=== PATIENT | male | born 1995 | race American Indian/Alaskan Native ===

== ENCOUNTER 2020-06-09 23:12 | Emergency (ER) | payer SELFPAY ==
--- NOTE | 2020-06-10 00:27 | XRay Report ---
CHEST 2 VIEWS INDICATION / CLINICAL INFORMATION: chestpain and hayder. FINDINGS: SUPPORT DEVICES: None. HEART / MEDIASTINUM: No significant abnormality. LUNGS / PLEURA: No significant pulmonary or pleural abnormality. No pneumothorax. ADDITIONAL FINDINGS: No significant additional findings. IMPRESSION: 1. No acute findings. Signer Name: Tony Bliss MD Signed: 06/10/2020 12:22 AM Workstation Name: [id number]
--- NOTE | 2020-06-10 01:44 | Emergency Department Report ---
- General Chief Complaint: Chest Pain Stated Complaint: CHEST PAIN/CHERRY Source: patient Mode of arrival: Ambulatory Limitations: No Limitations - History of Present Illness Initial Comments: Patient is a 25-year-old -U[place]and[place] male with no past medical history except chronic heavy tobacco abuse who presents to the ED with complaint of acute onset persistent nasal and sinus congestion, frontal sinus pressure, persistent dry cough with pleuritic chest pain for the last 3 days. Patient states that he has been taking dokv-mfx-[id number] medications with no relief. Patient denies fever, chills, nausea, vomiting, dizziness, syncope, shortness of breath, abdominal pain, sore throat or change in vision or syncope and neck pain. MD Complaint: cough, rhinorrhea, nasal congestion, other (pleuritic chest pain) -: Sudden, days(s) (3) Severity: moderate Severity scale (0 -10): 5 Quality: dull Consistency: constant Improves With: nothing Worsens With: nothing Associated Symptoms: denies other symptoms, headache, rhinorrhea, nasal congestion, cough, shortness of breath. denies: fever, chills, myalgias, diaphoresis, sore throat, stiff neck, chest pain, abdominal pain, nausea, vomiting, diarrhea, dysuria, rash, confusion, weight loss, epistaxis, hoarseness, other Treatments Prior to Arrival: none - Related Data Previous Rx's Medication Instructions Recorded Last Taken Type Azithromycin [Zithromax Z-REESE] 250 mg PO DAILY #6 tablet 06/10/20 Unknown Rx Benzonatate [Tessalon Perles] 100 mg PO Q8HR #30 capsule 06/10/20 Unknown Rx Cetirizine HCl [Zyrtec 10mg tab] 10 mg PO DAILY #30 tablet 06/10/20 Unknown Rx Ibuprofen [Motrin] 800 mg PO Q8HR PRN #24 tablet 06/10/20 Unknown Rx predniSONE [Deltasone] 40 mg PO QDAY #10 tab 06/10/20 Unknown Rx Allergies Allergy/AdvReac Type Severity Reaction Status Date / Time No Known Allergies Allergy Unverified 06/09/20 23:42 ED Review of Systems ROS: Stated complaint: CHEST PAIN/CHERRY Other details as noted in HPI Constitutional: denies: chills, fever Eyes: denies: eye pain, eye discharge, vision change ENT: congestion, other (frontal sinus pressure). denies: ear pain, throat pain Respiratory: cough. denies: shortness of breath, wheezing Cardiovascular: chest pain (Pleuritic chest wall pain). denies: palpitations Endocrine: no symptoms reported Gastrointestinal: denies: abdominal pain, nausea, vomiting, diarrhea Genitourinary: denies: urgency, dysuria Musculoskeletal: denies: back pain, joint swelling, arthralgia Skin: denies: rash, lesions Neurological: denies: headache, weakness, paresthesias Psychiatric: denies: anxiety, depression Hematological/Lymphatic: denies: easy bleeding, easy bruising ED Past Medical Hx - Past Medical History Previous Medical History?: No - Surgical History Past Surgical History?: No - Social History Smoking Status: Current Every Day Smoker Substance Use Type: Marijuana - Medications Home Medications: Home Medications Medication Instructions Recorded Confirmed Last Taken Type Azithromycin [Zithromax Z-REESE] 250 mg PO DAILY #6 tablet 06/10/20 Unknown Rx Benzonatate [Tessalon Perles] 100 mg PO Q8HR #30 capsule 06/10/20 Unknown Rx Cetirizine HCl [Zyrtec 10mg tab] 10 mg PO DAILY #30 tablet 06/10/20 Unknown Rx Ibuprofen [Motrin] 800 mg PO Q8HR PRN #24 tablet 06/10/20 Unknown Rx predniSONE [Deltasone] 40 mg PO QDAY #10 tab 06/10/20 Unknown Rx ED Physical Exam - General Limitations: No Limitations General appearance: alert, in no apparent distress - Head Head exam: Present: atraumatic, normocephalic, normal inspection - Eye Eye exam: Present: normal appearance, PERRL, EOMI Pupils: Present: normal accommodation - ENT ENT exam: Present: normal orophraynx, mucous membranes moist, TM's normal bilaterally, normal external ear exam, other (Grossly congested nasal passages; palpable frontal sinus tenderness) - Neck Neck exam: Present: normal inspection, full ROM - Respiratory Respiratory exam: Present: normal lung sounds bilaterally. Absent: respiratory distress, wheezes, rales, rhonchi, chest wall tenderness, accessory muscle use, decreased breath sounds - Cardiovascular Cardiovascular Exam: Present: regular rate, normal rhythm, normal heart sounds. Absent: systolic murmur, diastolic murmur, rubs, gallop - GI/Abdominal GI/Abdominal exam: Present: soft, normal bowel sounds. Absent: tenderness, rebound, hyperactive bowel sounds, hypoactive bowel sounds - Extremities Exam Extremities exam: Present: normal inspection, full ROM, normal capillary refill - Back Exam Back exam: Present: normal inspection, full ROM. Absent: tenderness, CVA tenderness (R), CVA tenderness (L), muscle spasm, paraspinal tenderness - Neurological Exam Neurological exam: Present: alert, oriented X3, CN II-XII intact, normal gait, reflexes normal - Psychiatric Psychiatric exam: Present: normal affect, normal mood - Skin Skin exam: Present: warm, dry, intact, normal color. Absent: rash ED Course Vital Signs 06/09/20 23:38 Temperature 97.9 F Pulse Rate 72 Respiratory 16 Rate Blood Pressure 129/64 O2 Sat by Pulse 99 Oximetry ED Medical Decision Making - Radiology Data Radiology results: report reviewed, image reviewed Findings [address] [address] XRay Report Signed Patient: FRAN PAREDES MR#: [id number] : 1995 Acct:[id number] Age/Sex: 25 / M ADM Date: 06/09/20 Loc: ED Attending Dr: Ordering Physician: ED MD CANDIDA Date of Service: 06/09/20 Procedure(s): XR chest routine 2V Accession Number(s): [id number] cc: ED MD CANDIDA Fluoro Time In Minutes: CHEST 2 VIEWS INDICATION / CLINICAL INFORMATION: chestpain and cherry. FINDINGS: SUPPORT DEVICES: None. HEART / MEDIASTINUM: No significant abnormality. LUNGS / PLEURA: No significant pulmonary or pleural abnormality. No pneumothorax. ADDITIONAL FINDINGS: No significant additional findings. IMPRESSION: 1. No acute findings. Signer Name: Tony Bliss MD Signed: 06/10/2020 12:22 AM Workstation Name: [id number] Transcribed By: BC Dictated By: Tony Bliss MD Electronically Authenticated By: Tony Bliss MD Signed Date/Time: 06/10/2021 DD/ TD/TT: - Medical Decision Making This is a 25-year-old -U[place] male with no past medical history except chronic heavy tobacco abuse who presents to the ED with complaint of acute onset persistent nasal and sinus congestion, frontal sinus pressure, persistent dry cough with pleuritic chest pain for the last 3 days. Patient states that he has been taking pxeg-wkn-ldbiolz medications with no relief. In the ED, patient is alert and oriented x3 and is not in distress. Chest x-ray shows no acute cardiopulmonary abnormalities or pneumonitis. Patient was discharged home on medications and advised to follow-up with his primary care physician in 5 to 7 days for reevaluation or return to the ED immediately if symptoms get worse. - Differential Diagnosis Sinusitis; URI; bronchitis; pneumonia; COVID-19 Critical care attestation.: If time is entered above; I have spent that time in minutes in the direct care of this critically ill patient, excluding procedure time. ED Disposition Clinical Impression: Acute upper respiratory infection, Acute non-recurrent frontal sinusitis Acute bronchitis Qualifiers: Bronchitis organism: unspecified organism Qualified Code(s): J20.9 - Acute bronchitis, unspecified Disposition: DC-01 TO HOME OR SELFCARE Is pt being admited?: No Does the pt Need Aspirin: No Condition: Stable Instructions: Acute Bronchitis (ED), Upper Respiratory Infection (ED), Acute Bacterial Rhinosinusitis (ED) Additional Instructions: The chest x-ray shows no acute cardiopulmonary abnormalities or pneumonitis. Take medication with food, drink plenty of fluids and follow-up with your primary care physician in 7 to 10 days for reevaluation. Return to the ED immediately if symptoms get worse. Prescriptions: predniSONE [Deltasone] 40 mg PO QDAY #10 tab Ibuprofen [Motrin] 800 mg PO Q8HR PRN #24 tablet PRN Reason: Pain , Severe (7-10) Benzonatate [Tessalon Perles] 100 mg PO Q8HR #30 capsule Azithromycin [Zithromax Z-REESE] 250 mg PO DAILY #6 tablet Cetirizine HCl [Zyrtec 10mg tab] 10 mg PO DAILY #30 tablet Referrals: [facility] [Provider Group] - 3-5 Days Forms: Work/School Release Form(ED) Time of Disposition: 01:46 Print Language: K[place]ILI
[2020-06-10 02:59] VITALS: BP 124/83
== END 2020-06-10 02:26 | disposition home or self-care (01) ==
LOC: ED 23:12
DX: J01.10 Acute frontal sinusitis, unspecified (principal); J06.9 Acute upper respiratory infection, unspecified; J20.9 Acute bronchitis, unspecified
CPT/HCPCS: 71046; 93005

== ENCOUNTER 2020-11-27 20:06 | Emergency (ER) | payer SELFPAY ==
[2020-11-27] MEDS ORDERED: LIDOCAINE (1%) 10 MG/1 ML VIAL 20 ML MDV INFILTRATI ONE (20:11)
[2020-11-27] MEDS ORDERED: NEOMY 3.5 MG/BACIT 400 UNITS/POLY B 5000 UNITS/GM OINT PACKET TP STA (20:12)
[2020-11-27] MEDS ORDERED: oxyCODONE /ACETAMINOPHEN 5-325MG TAB PO ONE (20:14)
--- NOTE | 2020-11-27 20:14 | Emergency Department Report ---
ED Animal Bite HPI - General Stated Complaint: BITE/LEFT HAND Time Seen by Provider: 11/27/20 20:08 - History of Present Illness Complaint: animal bite -: Sudden Left: Hand Animal: dog Animal Control Notified: No Description: unknown animal Mechanism: bite Pain Description: dull, constant Severity scale (0 -10): 10 Context: unprovoked Associated Symptoms: none - Related Data Patient Tetanus UTD: Yes Previous Rx's Medication Instructions Recorded Last Taken Type Azithromycin [Zithromax Z-REESE] 250 mg PO DAILY #6 tablet 06/10/20 Unknown Rx Benzonatate [Tessalon Perles] 100 mg PO Q8HR #30 capsule 06/10/20 Unknown Rx Cetirizine HCl [Zyrtec 10mg tab] 10 mg PO DAILY #30 tablet 06/10/20 Unknown Rx Ibuprofen [Motrin] 800 mg PO Q8HR PRN #24 tablet 06/10/20 Unknown Rx predniSONE [Deltasone] 40 mg PO QDAY #10 tab 06/10/20 Unknown Rx Amoxicillin/Potassium Clav 1 each PO BID #20 tablet 11/27/20 Unknown Rx [Augmentin 875-125 Tablet] Chlorhexidine Gluconate [Hibiclens] 10 ml TP BID #240 liquid 11/27/20 Unknown Rx Ketorolac [Toradol] 10 mg PO Q6H PRN #15 tablet 11/27/20 Unknown Rx traMADoL [Ultram] 50 mg PO Q6HR PRN #20 tablet 11/27/20 Unknown Rx Allergies Allergy/AdvReac Type Severity Reaction Status Date / Time No Known Allergies Allergy Unverified 06/09/20 23:42 ED Review of Systems ROS: Stated complaint: BITE/LEFT HAND Other details as noted in HPI Comment: All other systems reviewed and negative ED Past Medical Hx - Social History Smoking Status: Current Every Day Smoker Substance Use Type: Marijuana - Medications Home Medications: Home Medications Medication Instructions Recorded Confirmed Last Taken Type Azithromycin [Zithromax Z-REESE] 250 mg PO DAILY #6 tablet 06/10/20 Unknown Rx Benzonatate [Tessalon Perles] 100 mg PO Q8HR #30 capsule 06/10/20 Unknown Rx Cetirizine HCl [Zyrtec 10mg tab] 10 mg PO DAILY #30 tablet 06/10/20 Unknown Rx Ibuprofen [Motrin] 800 mg PO Q8HR PRN #24 tablet 06/10/20 Unknown Rx predniSONE [Deltasone] 40 mg PO QDAY #10 tab 06/10/20 Unknown Rx Amoxicillin/Potassium Clav 1 each PO BID #20 tablet 11/27/20 Unknown Rx [Augmentin 875-125 Tablet] Chlorhexidine Gluconate [Hibiclens] 10 ml TP BID #240 liquid 11/27/20 Unknown Rx Ketorolac [Toradol] 10 mg PO Q6H PRN #15 tablet 11/27/20 Unknown Rx traMADoL [Ultram] 50 mg PO Q6HR PRN #20 tablet 11/27/20 Unknown Rx ED Physical Exam - General General appearance: alert, in no apparent distress - Head Head exam: Present: atraumatic, normocephalic - Eye Eye exam: Present: normal appearance, PERRL Pupils: Present: normal accommodation - ENT ENT exam: Present: normal exam, normal orophraynx, mucous membranes moist, TM's normal bilaterally - Neck Neck exam: Present: normal inspection, full ROM - Respiratory Respiratory exam: Present: normal lung sounds bilaterally. Absent: respiratory distress, wheezes - Cardiovascular Cardiovascular Exam: Present: regular rate, normal rhythm. Absent: systolic murmur, diastolic murmur, rubs, gallop - GI/Abdominal GI/Abdominal exam: Present: soft, normal bowel sounds. Absent: tenderness, guarding, hyperactive bowel sounds, hypoactive bowel sounds, organomegaly - Rectal Rectal exam: Present: deferred - Extremities Exam Extremities exam: Present: normal inspection, tenderness - Expanded Upper Extremity Exam Left Hand Wrist exam: Present: tenderness, laceration Hand L/R Back: 1 - laceration to this region 4 cm - Back Exam Back exam: Present: normal inspection - Neurological Exam Neurological exam: Present: alert, oriented X3 - Psychiatric Psychiatric exam: Present: normal affect, normal mood - Skin Skin exam: Present: warm, dry, intact, normal color. Absent: rash ED Course Vital Signs 11/27/20 20:12 Temperature 98.3 F Pulse Rate 98 H Respiratory 18 Rate Blood Pressure 158/97 O2 Sat by Pulse 99 Oximetry - Procedure Description Procedures done: Left hand laceration. Wound size 4.5 cm. Wound was was irrigated with copious saline's and prepped and sterile fashion. Lidocaine 2% x 6 cc was placed in wound for anesthesia. 4-0 Prolene was placed x2 for loose wound closure Critical care attestation.: If time is entered above; I have spent that time in minutes in the direct care of this critically ill patient, excluding procedure time. ED Disposition Clinical Impression: Dog bite, Laceration, Puncture wound, Encounter for prophylactic administration of rabies immune globulin Disposition: DC-01 TO HOME OR SELFCARE Is pt being admited?: No Does the pt Need Aspirin: No Condition: Stable Instructions: Rabies Immune Globulin, human RIG solution for injection, VIS, Rabies - CDC (08/16/2019), Animal Bite, Adult, Rabies Vaccine suspension for injection Additional Instructions: Please follow-up in 7 days to be evaluated for suture removal 2 sutures were placed in your laceration to improve wound closure given the size of your injury. Prescriptions: Amoxicillin/Potassium Clav [Augmentin 875-125 Tablet] 1 each PO BID #20 tablet Chlorhexidine Gluconate [Hibiclens] 10 ml TP BID #240 liquid Ketorolac [Toradol] 10 mg PO Q6H PRN #15 tablet PRN Reason: Pain traMADoL [Ultram] 50 mg PO Q6HR PRN #20 tablet PRN Reason: Pain Referrals: [facility] [Outside] - 3-5 Days ALECIA MOODY MD [Staff Physician] - as needed (Please follow-up with the health department for the remaining rabies vaccination numbers.) Medical Decision Making - Radiology Data Radiology results: report reviewed [address] [place] [id number] XRay Report Signed Patient: FRAN PAREDES MR#: [id number] : 1995 Acct:[id number] Age/Sex: 25 / M ADM Date: 11/27/20 Loc: ED Attending Dr: Ordering Physician: CHANELLE WALDEN Date of Service: 11/27/20 Procedure(s): XR hand 3+V LT Accession Number(s): [id number] cc: CHANELLE WALDEN Fluoro Time In Minutes: LEFT HAND, 3 VIEWS INDICATION / CLINICAL INFORMATION: dog bite. COMPARISON: None available. FINDINGS: No fracture or dislocation. No significant osseous abnormality. No radiopaque foreign object in the region of the bite injury. No significant soft tissue gas identified. IMPRESSION: No acute osseous abnormality. Signer Name: Silva Wang MD Signed: 11/27/2020 8:52 PM Workstation Name: [id number] Transcribed By: JR Dictated By: Silva Wang MD Electronically Authenticated By: Silva Wang MD Signed Date/Time: 11/27/202051 DD/ 50 TD/TT: - MDM 19-year-old male status post dog bite from a neighbors dog resulting in a laceration and puncture wound to the palmar side of his left hand. There is significant abrasion to the fifth digit with partial nail trauma but no subungual hematoma. The wound was irrigated and repaired. No fractures on x- ray. He received his rabies vaccination as well as immunoglobulin shot states that his tetanus was also needed and was put soap which was obtained as well. Is been instructed on the following up with his primary doctor health department for the remaining type rabies vaccination
[2020-11-27 20:15] VITALS: BP 158/97
--- NOTE | 2020-11-27 20:56 | XRay Report ---
LEFT HAND, 3 VIEWS INDICATION / CLINICAL INFORMATION: dog bite. COMPARISON: None available. FINDINGS: No fracture or dislocation. No significant osseous abnormality. No radiopaque foreign object in the r egion of the bite injury. No significant soft tissue gas identified. IMPRESSION: No acute osseous abnormality. Signer Name: Silva Wang MD Signed: 11/27/2020 8:52 PM Workstation Name: [id number]
[2020-11-27] MEDS ORDERED: RABIES VACCINE, HUMAN DIPLOID/PF 2.5 UNIT/ML VIAL IM ONE (20:58)
[2020-11-27] MEDS ORDERED: RABIES IMMUNE GLOBULIN P/F 300 UNIT/ML INJ 5 ML IM ONE (20:58)
[2020-11-27] MEDS ORDERED: KETOROLAC 60 MG/2 ML INJ IM STA (22:00)
== END 2020-11-27 22:42 | disposition home or self-care (01) ==
LOC: ED 20:06
PROC: 0DQQXZZ Repair Anus, External Approach (ICD-10-PCS; principal; 2020-11-27)
DX: S61.412A Laceration without foreign body of left hand, initial encounter (principal); S61.432A Puncture wound without foreign body of left hand, initial encounter; F17.200 Nicotine dependence, unspecified, uncomplicated; F12.10 Cannabis abuse, uncomplicated; Z79.899 Other long term (current) drug therapy; W54.0XXA Bitten by dog, initial encounter; Y93.89 Activity, other specified; Y92.89 Other specified places as the place of occurrence of the external cause; Y99.8 Other external cause status
CPT/HCPCS: 12002; 73130; 90375; 90471; 90675; 96372; 99283; A6250; J1885